=== PATIENT | male | born 1980 | race Caucasian/White ===

== ENCOUNTER 2020-09-15 11:03 | Outpatient (REF) | payer MEDICAID, SELFPAY | END 2020-09-15 11:04 | disposition home or self-care (01) | LOC: HO.LAB 11:03 | PROVIDERS: Visit Provider Internal Medicine | DX: Z20.828 Contact with and (suspected) exposure to other viral communicable diseases (principal) | CPT/HCPCS: C9803; U0003 ==

== ENCOUNTER 2020-11-16 08:11 | Outpatient (REF) | payer MEDICAID, SELFPAY | END 2020-11-16 08:12 | disposition home or self-care (01) | LOC: HO.LAB 08:11 | PROVIDERS: Visit Provider Internal Medicine | DX: Z20.822 Contact with and (suspected) exposure to COVID-19 (principal) | CPT/HCPCS: 36415; C9803; U0003 ==

== ENCOUNTER 2024-09-15 13:06 | Emergency (ER) | payer MEDICAID, SELFPAY ==
[2024-09-15 13:24] VITALS: BP 116/70; PULSE 70; RESP 18; TEMP 37; O2SAT 97; BMI 25.3
--- NOTE | 2024-09-15 13:28 | ED_ITS ---
HPI - General Adult General Chief complaint: Recheck/Abnormal Lab/Rx Stated complaint: high bp, headache Time Seen by Provider: 09/15/24 19:04 Source: patient Mode of arrival: ambulatory Limitations: language barrier (Maori-speaking mig tig welder utilized) History of Present Illness ED Provider: maldonado yancey NP HPI narrative: Patient is a 43-year-old male who presents emergency department for evaluation. He reports that he awoke today with a diffuse headache described as a pressure- like sensation. Did not take any OTC analgesics for this. While he was at [facility] he thought to check his blood pressure on an automated machine which read 135/79. He was concerned that this was elevated in addition to having his headache he decided to come to the emergency department. He denies associated dizziness, lightheadedness, vision changes, neck pain, neck stiffness, chest pain, shortness of breath, nausea, vomiting, numbness or tingling of the extremities. No recent head injuries. Related Data Allergies Allergy/AdvReac Type Severity Reaction Status Date / Time No Known Allergies Allergy Unverified 09/15/24 13:28 Review of Systems Review of Systems: Yes all other systems are reviewed and are negative ON LICENSE OF [facility] Past Medical History Attestation statement: The following information was validated with the patient. Source: old records reviewed Social History Social History Advance Directives: No Advance Directives Information Provided: No Do you have a plan to hurt others: No Plan Physical Exam ED Vital Signs: Vital Signs - 24 hr 09/15/24 13:24 09/15/24 18:52 09/15/24 20:19 Temperature 98.6 F 97.9 F 97.9 F Pulse Rate 70 68 68 Respiratory Rate 18 16 16 Blood Pressure 116/70 118/77 118/77 Pulse Oximetry 97 98 98 Oxygen Delivery Method Room Air Room Air Room Air BMI result Body Mass Index 25.3 Appearance: Alert.?Oriented to person, place and time. No acute distress.?Normal affect. Head: Normocephalic, atraumatic Eyes: Pupils equal, round and reactive to light. EOMI. No nystagmus. No tenderness to palpation over the temporal region. ENT: External auditory canal normal tympanic membrane pearly conteh and intact bilaterally. Oropharynx normal. Neck: Normal inspection.? Neck supple. CVS: Heart sounds normal. Normal heart rate and rhythm.? Pulses normal.?? Respiratory: No respiratory distress.? Lung sounds clear to auscultation bilaterally?? Abdomen: Soft and non-tender. Normoactive bowel sounds. ?? Skin: Skin warm and dry.? Normal skin color.? ?? Extremities: No lower extremity edema.? Neuro: Moves all extremities spontaneously. Sensation intact bilaterally. CN II- XII intact. No focal neuro deficits. Ambulatory with steady gait. Course Course Course Narrative: RME performed by Milly Fields PA-C. Patient is a 43 year old assigned male at presenting to the emergency department with a headache and concerns of high blood pressure. Detailed physical exam and review of systems are deferred to the ginner. Swabs ordered. Patient placed back in the waiting room pending room availability and results. Medications Administered Discontinued Medications Generic Name Dose Route Start Last Admin Trade Name Freq PRN Reason Stop Dose Admin Ibuprofen 600 mg 09/15/24 19:34 09/15/24 20:17 Ibuprofen 600 Mg Tablet PO 09/15/24 19:35 600 mg ONCE ONE Administration Medical Decision Making Medical Decision Making [facility] Narrative: Patient is a 43-year-old male presenting to emergency department for evaluation of a headache onset earlier today without taking any OTC analgesics, has been intermittent, described as a mild pressure currently in his diffuse 01/12. Differential diagnosis with presentation includes SDH, SAH, ICH, CLINICAL TRIAL COORDINATOR mass, meningitis, encephalitis, CVA, GCA, migraine, headache. History without concerning exposures, not exacerbated or worsened by exertion, no red flag symptoms, vision changes, under the age of 50, no new no compromising conditions, no focal neurological abnormalities, no nuchal rigidity, no recent trauma. Despite his concern for hypertension with the automated machine at [facility], he is normotensive here. Physical examination is benign, he has no focal neurological deficits. I suspect this is likely a tension type headache, for which we will trial management with ibuprofen.. Differential Diagnosis Differential Diagnoses: The differential diagnosis associated with the presentation includes (SDH, SAH, ICH, CLINICAL TRIAL COORDINATOR mass, meningitis, encephalitis, CVA, GCA, migraine, headache) Lab Data [facility] Lab Attestation statement: I reviewed the patient's lab results. (Viral serologies negative) Labs: Lab Results 09/15/24 Range/Units 13:56 Influenza Type A (PCR) NEGATIVE (Negative) Influenza Type B (PCR) NEGATIVE (Negative) RSV RNA Qual (PCR) NEGATIVE (Negative) SARS-CoV-2 RNA (RT-PCR) NEGATIVE (Negative) External Record Review External record reviewed: Outpatient record Tests considered The following testing was considered but not selected: See narrative above, CT head deferred. Prescription Management I considered prescription management with: Pain Medication Discharge Plan Discharge Clinical Impression: Headache Patient Disposition: Home, Self-Care Instructions: Acute Headache (ED) Additional Instructions: You can take ibuprofen 200 mg, 3 tablets (600mg) every 6-8 hours as needed for pain, in addition to Tylenol 500 mg, 2 tablets (1,000mg) every 4-6 hours as needed for pain, but not to exceed 3 doses daily (3,000mg).? Your blood pressure was normal today. You may follow-up with your primary care doctor as needed. Referrals: Physician,None [Primary Care Provider] - Interventions: ED Discharge Assessment Last Done: 09/15/24 20:19 Discharge Date/Time: 09/15/24 20:20 Print Language: Maori
[2024-09-15 14:41] LABS: Influenza A PCR NEGATIVE (Negative); Influenza B PCR NEGATIVE (Negative); Resp Syncy Virus RNA Qual PCR NEGATIVE (Negative); SARS COV2 PCR INHOUSE NEGATIVE (Negative)
[2024-09-15 18:52] VITALS: BP 118/77; PULSE 68; RESP 16; TEMP 36.6; O2SAT 98
--- NOTE | 2024-09-15 18:56 | PC.NURSE ---
patient a&ox3, vss, pt denying pain at this time, pt awaiting provider evaluation, call reagan within reach, will continue to monitor
[2024-09-15] MEDS: Ibuprofen 600 MG TABLET PO (20:17)
[2024-09-15 20:19] VITALS: BP 118/77; PULSE 68; RESP 16; TEMP 36.6; O2SAT 98
== END 2024-09-15 20:20 | disposition home or self-care (01) ==
PROVIDERS: Physician Assistant Medical; Emergency Provider Emergency Medicine
DX: R51.9 Headache, unspecified (principal); R79.89 Other specified abnormal findings of blood chemistry; R03.0 Elevated blood-pressure reading, without diagnosis of hypertension; Z03.818 Encounter for observation for suspected exposure to other biological agents ruled out
CPT/HCPCS: 0241U; 99283

== ENCOUNTER 2024-10-08 11:00 | Outpatient (REF) | payer MEDICAID, SELFPAY ==
[2024-10-08 13:16] LABS: Hematocrit 46.5 % (42.0-52.0); Hemoglobin 15.4 g/dl (14.0-18.0); Mean Corpuscular HGB Conc 33.1 g/dl (31.0-36.0); Mean Corpuscular Hemoglobin 32.1 pg (27.0-33.0); Mean Corpuscular Volume 96.9 fL (80.0-98.0); Mean Platelet Volume 10.2 fL (9.4-12.4); Platelet Count 297 X10*3/uL (160-400); Red Cell Distribution Width 11.8 % (11.0-16.0); White Blood Count 7.3 X10*3/uL (4.8-10.8)
[2024-10-08 13:30] LABS: Alanine Aminotransferase 27 U/L (0-40); Albumin Level 4.4 g/dL (3.5-5.0); Alkaline Phosphatase 87 U/L (39-117); Anion Gap 11 (12-20); Aspartate Amino Transferase 31 U/L (5-37); Bilirubin Total 0.9 mg/dL (0.0-1.0); Blood Urea Nitrogen 13 mg/dL (9-16); Calcium 9.9 mg/dL (8.4-10.2); Carbon Dioxide 31 mmol/L (22-29); Chloride 104 mmol/L (96-108); Cholesterol 232 mg/dL (<200); Estimated Glomerular Filt Rate > 60; Glucose Random 85 mg/dL (60-115); HDL Cholesterol 55 mg/dL (>40); LDL Cholesterol Calculated 159 mg/dL (<100); Potassium 3.9 mmol/L (3.3-5.1); Sodium 142 mmol/L (135-145); Total Protein 7.7 g/dL (6.5-8.0); Triglycerides 90 mg/dL (<150)
[2024-10-08 13:35] LABS: Estimated Average Glucose 85 mg/dL; Hemoglobin A1C 105.4749 umol/L; Hemoglobin A1c % 4.6 % (<6.0); Total Hemoglobin (HGBA1C) 3973.5094 umol/L
[2024-10-08 13:50] LABS: TSH reflex Free T4 1.33 uIU/mL (0.32-4.0)
[2024-10-08 14:59] LABS: CT PCR NOT DETECTED (Not Detect.); NG PCR NOT DETECTED (Not Detect.)
[2024-10-09 04:36] LABS: Syphilis Screen Nonreactive (Nonreactive)
[2024-10-09 04:51] LABS: HBS Num1 0.01 mIU/mL (0-7.99); HBc Num1 0.11 S/CO (0.00-0.79); HBsAGNum1 0.53 S/CO (0.00-0.99); HIV AB/AG Nonreactive (Nonreactive); HIV Num 1 0.05 S/CO (0.00-0.99); Hepatitis B Core Antibody Nonreactive (Nonreactive); Hepatitis B Surface Antigen Negative (Negative); ~HepC Num1 0.14 S/CO (0.00-0.79); ~Hepatitis B Surface Antibody NONREACTIVE (Nonreactive); ~Hepatitis C Antibody Nonreactive (Nonreactive)
== END 2024-10-08 11:01 | disposition home or self-care (01) ==
LOC: HO.HHCL 11:00
PROVIDERS: Visit Provider Student in an Organized Health Care Education/Training Program
DX: Z00.00 Encounter for general adult medical examination without abnormal findings (principal)
CPT/HCPCS: 80053; 80061; 83036; 84443; 85027; 86704; 86706; 86780; 86803; 87340; 87389; 87491; 87591

== ENCOUNTER 2024-11-27 01:36 | Emergency (ER) | payer MEDICAID, SELFPAY ==
[2024-11-27 01:47] VITALS: BP 130/80; PULSE 66; RESP 16; TEMP 36.4; O2SAT 99; BMI 25.7
[2024-11-27 02:24] VITALS: BP 119/65; PULSE 60; RESP 16; TEMP 37.7; O2SAT 99
--- NOTE | 2024-11-27 05:23 | ED_ITS ---
HPI - General Adult General Chief complaint: Headache Stated complaint: back neck pain Time Seen by Provider: 11/27/24 05:23 Related Data Allergies Allergy/AdvReac Type Severity Reaction Status Date / Time No Known Allergies Allergy Verified 11/27/24 01:48 [facility] Social History Social History Smoked in Last 30 Days: No Use of substances other than those prescribed or required for medical reasons: No Advance Directives: No Advance Directives Information Provided: Yes Do you have a plan to hurt others: No Plan Physical Exam ED Vital Signs: Vital Signs - 24 hr 11/27/24 01:47 11/27/24 02:24 Temperature 97.6 F 99.8 F Pulse Rate 66 60 Respiratory Rate 16 16 Blood Pressure 130/80 119/65 Pulse Oximetry 99 99 Oxygen Delivery Method Room Air Room Air BMI result Body Mass Index 25.7 Discharge Plan Discharge Print Language: [place] Islander
[2024-11-27 05:42] VITALS: BP 121/70; PULSE 61; RESP 16; TEMP 37.3; O2SAT 97
--- NOTE | 2024-11-27 05:51 | ED.GENADULT ---
HPI - General Adult General Chief complaint: Headache Stated complaint: back neck pain Time Seen by Provider: 11/27/24 05:23 History of Present Illness ED Provider: Balaji WILLINGHAM narrative: The patient is a 44-year-old male who has had some head pain in the back of his right head for a week or 2. He feels the discomfort behind his right ear. He does not normally get headaches of any kind. Yesterday the patient felt that he might have some weakness on the right side of his face. He was rinsing his mouth out with Listerine and he felt that Listerine was dribbling out of the right side of his mouth. Today he realized that his right eye was not blinking very much as well. For all these reasons he came to the emergency room for evaluation. He apparently was recently visiting in [place]. He returned to this area from [place] today. He has had no fever, sweats, chills. Related Data Previous Rx's ?Medication ?Instructions ?Recorded artificial tears(hypromellose) 0.5 2 drp ophthalmic-Right Q2H #15 mL 11/27/24 % eye drops prednisone 20 mg tablet 60 mg (3 x 20 mg) PO DAILY 6 days 11/27/24 #18 tabs valacyclovir 1 gram tablet 1,000 mg PO TID 7 days #21 tabs 11/27/24 Allergies Allergy/AdvReac Type Severity Reaction Status Date / Time No Known Allergies Allergy Verified 11/27/24 01:48 Review of Systems Review of Systems: Yes all other systems are reviewed and are negative PMFSH Social History Social History Smoked in Last 30 Days: No Use of substances other than those prescribed or required for medical reasons: No Advance Directives: No Advance Directives Information Provided: Yes Do you have a plan to hurt others: No Plan Physical Exam ED Vital Signs: Vital Signs - 24 hr 11/27/24 01:47 11/27/24 02:24 11/27/24 05:42 Temperature 97.6 F 99.8 F 99.1 F Pulse Rate 66 60 61 Respiratory Rate 16 16 16 Blood Pressure 130/80 119/65 121/70 Pulse Oximetry 99 99 97 Oxygen Delivery Method Room Air Room Air Room Air 11/27/24 06:06 Temperature 99.1 F Pulse Rate 61 Respiratory Rate 16 Blood Pressure 121/70 Pulse Oximetry 97 Oxygen Delivery Method Room Air BMI result Body Mass Index 25.7 Const Other: The patient has the appearance of a not nearly healthy looking 44-year-old. He was awake and alert, pleasant cooperative. He did not appear obviously acutely ill although he seemed to have some right-sided facial weakness. HENMT Other: There is a very subtle asymmetry to the face with subtle weakness of the right side of the face including the forehead. The patient could not puff out the cheeks because of air leakage on the right side. Eyes Other: Pupils are round equal, conjunctivae are clear, extraocular movements are intact. The patient had obvious decreased blinking function of the right eye. The right eye was able to fully close however. She Neck Other: no neck tenderness or swelling. Resp Effort & Inspection: normal respiratory effort Auscultation: clear to auscultation bilaterally Cardio Palpation: normal PMI Rate: regular rate Rhythm: regular rhythm and abnormal rhythm Skin Other: Skin is dry and unremarkable Neuro Other: the patient is awake and alert with normal mental status. He has a subtle weakness to the entire right side of the face including the forehead. He cannot puff out the cheeks because of air leakage on the right side. He has distinctly decreased blinking ability on the right eye. He is able to close the eye however. Speech is normal. Eye movements are normal. Strength and sensation in the extremities are normal. Aside from right facial weakness he has no other neurological deficits. Extrem Other: No peripheral edema the Medical Decision Making Medical Decision Making MDM Narrative: the patient is a 44-year-old otherwise healthy male who presents with a 2 day history of is mild but complete right-sided facial weakness that had been preceded by some headache behind the right ear for about a week or 2. 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 He does not feel that he has any significant exposure to ticks and therefore I think Lyme disease is an unlikely cause of Zazueta's palsy in this patient. The patient will be started on prednisone and valacyclovir. He was also given a prescription for artificial tears to help keep the right eye moist. At the moment I do not think he needs to tape his eye shut at night because the eye seems to close spontaneously. He was advised that if he feels there is any worsening to his eye closure he should tape his eye closed at night. He should follow up promptly with his PCP. Lab Data 11/27/24 05:56 11/27/24 05:56 Labs: Lab Results 11/27/24 Range/Units 05:56 WBC 6.0 (4.8-10.8) X10*3/uL RBC 4.34 L (4.60-5.80) X10*6/uL Hgb 14.4 (14.0-18.0) g/dl Hct 40.9 L (42.0-52.0) % MCV 94.2 (80.0-98.0) fL MCH 33.2 H (27.0-33.0) pg MCHC 35.2 (31.0-36.0) g/dl RDW 11.6 (11.0-16.0) % Plt Count 270 (160-400) X10*3/uL MPV 9.4 (9.4-12.4) fL Immature Gran % (Auto) 0.3 (0.0-0.4) % Neut % (Auto) 56.4 (45-73) % Lymph % (Auto) 32.8 (20-40) % [place] % (Auto) 8.9 (2-11) % Eos % (Auto) 1.3 (0-4) % Baso % (Auto) 0.3 (0-2) % Lymph # (Auto) 2.0 (1.2-4.9) X10*3/uL [place] # (Auto) 0.5 (0.1-1.2) X10*3/uL Eos # (Auto) 0.1 (0.0-0.4) X10*3/uL Baso # (Auto) 0.0 (0.0-0.2) X10*3/uL Abs Immat Gran (auto) 0.02 (0.00-0.03) X10*3/uL Absolute Neuts (auto) 3.4 (2.0-8.3) x10*3/uL Absolute Nucleated RBC 0.000 (0.0-0.012) X10*3/uL Nucleated RBC % (auto) 0.0 (0.0-0.2) /100WBC Sodium 141 (135-145) mmol/L Potassium 4.1 (3.3-5.1) mmol/L Chloride 108 (96-108) mmol/L Carbon Dioxide 26 (22-29) mmol/L Anion Gap 11 L (12-20) BUN 10 (9-16) mg/dL Creatinine 0.82 (0.5-1.4) mg/dL Estim Creat Clear Calc 114.9 Estimated GFR > 60 Random Glucose 96 (60-115) mg/dL Calcium 9.3 D (8.4-10.2) mg/dL C-Reactive Protein 0.61 H (< or = 0.50) mg/dL Discharge Plan Discharge Clinical Impression: Zazueta's palsy Patient Disposition: Home, Self-Care Instructions: Zazueta Palsy (ED) Additional Instructions: You have a condition called Zazueta's palsy that is causing weakness to the muscles on the right side of your face. You has been started on 2 medications to help this condition. One of these medications is prednisone. This medication is taken once a day. You have received your dose of prednisone for today, . Take your next dose of prednisone on Sunday morning. The other medication is valacyclovir, an antiviral medication. This medication is taken 3 times a day. You received another 2 doses today and then 3 times a day going forward. We have sent blood test to check to see if you might have Lyme disease. Lyme disease can sometimes cause Zazueta's palsy but I think it is unlikely in your case. We will call you if the test for Lyme disease is positive. I have also sent a prescription for eyedrops that you should use for your right eye. With Zazueta's palsy sometimes the eye does not fully close and the surface of the eye can get dry. Therefore apply eyedrops every couple of hours. If at night you feel that your right eye is not fully closing please tape it shut. Please contact the [facility] later today and call for a follow up appointment in the next few days. Explain that you were diagnosed with Zazueta's palsy in the emergency room. Return to the emergency room if you are significantly worse at any point. Prescriptions: New prednisone 20 mg tablet 60 mg PO DAILY 6 Days Qty: 18 0RF valacyclovir 1 gram tablet 1,000 mg PO TID 7 Days Qty: 21 0RF artificial tears(hypromellose) 0.5 % drops 2 drp ophthalmic-Right Q2H Qty: 15 0RF Referrals: [facility] [Provider Group] (Zazueta's palsy) Interventions: ED Discharge Assessment Last Done: 11/27/24 06:06 Discharge Date/Time: 11/27/24 06:09 Print Language: Bengali
[2024-11-27 06:01] LABS: Basophils Percent Auto 0.3 % (0-2); Eosinophils Absolute Auto 0.1 X10*3/uL (0.0-0.4); Eosinophils Percent Auto 1.3 % (0-4); Hematocrit 40.9 % (42.0-52.0); Hemoglobin 14.4 g/dl (14.0-18.0); Imm Gran Abs Auto 0.02 X10*3/uL (0.00-0.03); Imm Gran Pct Auto 0.3 % (0.0-0.4); Lymphocytes Percent Auto 32.8 % (20-40); MANUAL DIFF FLAG NO; Mean Corpuscular HGB Conc 35.2 g/dl (31.0-36.0); Mean Corpuscular Hemoglobin 33.2 pg (27.0-33.0); Mean Corpuscular Volume 94.2 fL (80.0-98.0); Mean Platelet Volume 9.4 fL (9.4-12.4); Monocytes Absolute Auto 0.5 X10*3/uL (0.1-1.2); Monocytes Percent Auto 8.9 % (2-11); Neutrophils Absolute Auto 3.4 x10*3/uL (2.0-8.3); Neutrophils Percent Auto 56.4 % (45-73); Platelet Count 270 X10*3/uL (160-400); Red Blood Count 4.34 X10*6/uL (4.60-5.80); Red Cell Distribution Width 11.6 % (11.0-16.0)
[2024-11-27 06:06] VITALS: BP 121/70; PULSE 61; RESP 16; TEMP 37.3; O2SAT 97
[2024-11-27 06:13] LABS: Anion Gap 11 (12-20); Blood Urea Nitrogen 10 mg/dL (9-16); C Reactive Protein 0.61 mg/dL (< or = 0.50); Calcium 9.3 mg/dL (8.4-10.2); Carbon Dioxide 26 mmol/L (22-29); Chloride 108 mmol/L (96-108); Creatinine Clr Calc Pharmacy 114.9; Estimated Glomerular Filt Rate > 60; Glucose Random 96 mg/dL (60-115); Potassium 4.1 mmol/L (3.3-5.1); Sodium 141 mmol/L (135-145)
[2024-11-28 11:13] LABS: Lyme Abs Screen <0.90 index
== END 2024-11-27 06:09 | disposition home or self-care (01) ==
PROVIDERS: Emergency Provider Emergency Medicine
DX: G51.0 Bell's palsy (principal); R51.9 Headache, unspecified
CPT/HCPCS: 36415; 80048; 85025; 86140; 86617; 86618; 99283; 99284

== ENCOUNTER 2025-05-26 08:03 | Outpatient (REF) | payer MEDICAID, SELFPAY ==
--- OUTSIDE RECORDS SUMMARY | 2025-05-26 08:06 | XMS_ITS | Clinical Summary ---
Author Organization [employer] Address [address] [facility] 7t [place] [address] Care Team Providers Care Account Manager Education Name Role Phone Cherie Arrington MD Primary Care Pro vider Allergies No known active allergies Medications * This document contains information received from the source organization and may not represent a complete record from that organization. Multiple Vitamin (multivitamin) capsule Take 1 capsule by mouth Once per day. 05/20/20 25 Discontinu ed(Other) ketoconazole (NIZOral) 2 % shampoo Apply topically 2 (two) times a week. Daily use for 1 week in affected area and then twice a week ,leave for 10 to 15 min and then rinse 120 mL 4 05/20/20 25 Discontinu ed(Other) emtricitabine-t enofovir DF (Truvada) 200-300 MG tablet One tablet by mouth daily 90 tablet 4 05/20/20 25 Discontinu ed(Other) doxycycline (Vibra-Tabs) 100 MG tablet Take with a full glass of water and do not lie down for at least 30 minutes after. 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 Obesity 05/23/2025 Persistent depressive disord er with anxious distress, currently moderate 10/08/2024 Assessment & Plan (10/08/2024 1:33 PM EST): During [facility] Consult Gamal presenting with depressed mood, Tearful, hopelessness, irritable mood, loss of interests/pleasure , sense of isolation/loneliness , isolating, psychomotor agitation, worthlessness, inappropriate/excessive guilt , difficulty concentrating, indecisiveness and excessive worry/anxiety, difficulty controlling worry, anxiety/worry associated to restlessness and/or feeling keyed-up/On edge , easily fatigued , difficulty concentrating and/or mind going blank , irritability, and sleep disturbance difficulty falling asleep, and Fear ; for a period of 18+ mo, for most or all symptoms in the context of divorce/separation and family issues. Gamal reported struggling with symptoms for about two years. Recently, a romantic break-up triggered his underneath emotions. He is the youngest of ten siblings. Pt had a complex family hx when growing up which forced him to mature at a young age. His sense of resilience is identified as strength. clinician engaged patient with active/reflective listening. Reviewed and assessed for risk, current stressors and protective factors using open-ended questions. Explored strategies to use when sxs increase. Practiced breathing exercises during session. Pt recognized his strengths and ability to overcome difficulties. He is willing to try his own coping mechanisms to manage sxs. Declined OP referral for now. clinician provided information in case he changes his mind. Not interested in starting medication. Health care maintenance 10/08/2024 High risk sexual behavior 10/08/2024 Hyperlipidemia 01/12/2021 Herpes simplex 07/01/2012 Resolved Problems Problem Noted Date Diagnosed Date Resolved Date Pityriasis versicolor 10/08/20242024 Encounters Date Type Department Care Team Description 05/20/2025 3:00 PM EDT Office Visit [facility] MEDICINE [address] [place] [phone] Cherie Arrington MD Health care maintenance (Primary Dx); Hyperlipidemia, unspecified hyperlipidemia type; Dietary counseling; Exercise counseling; High risk heterosexual behavior; Zazueta's palsy; Obesity, unspecified class, unspecified obesity type, unspecified whether serious comorbidity present 05/20/2025 Travel 05/19/2025 Telephone [facility] MEDICINE [address] [place] [address] Cherie Arrington MD CHART PREP 04/03/2025 Telephone [facility] MEDICINE [address] [place] [address] Chip Mitchell MA Chart Prep 03/27/2025 Patient Outreach [facility]C MED & PEDS [address] [place] [address] Cherie Arrington MD Pre-visit Planning (Negative, Tobacco screening negative. ) from Last 3 Months Immunizations Immunization Administration Dates Next Due Hep A, Adult 06/08/2021,07/01/2012 Hep B, adult 04/18/2022, 9,11/28/2018,2017,07/01/2012 Influenza injectable quadriv alent IIV4 with preservative 08/12/2015 Influenza, Split (incl. clover fied surface antigen) 07/01/2012 Moderna Covid-19 Vaccine 12+ 03/16/2021,02/17/20 21 Tdap 06/08/2021 Family History Medical History Relation Name Comments Heart attack Father DM2 Mother breast ca- 50s Mother Relation Name Status Comments Father Mother Social History Tobacco Use Types Packs/Day Years Used Date Smoking Tobacco: Never Passive Smoke Exposure: Never Smokeless Tobacco: Never Tobacco Cessation:Counseling Given: Not Answered Alcohol Use Standard Drinks/Week Comments Yes 0 (1 standard drink = 0.6 oz pur e alcohol) social Depression Answer Date Recorded Patient Health Questionnaire-9 Score 7 10/08/2024 Patient Health Questionnaire-9 Score 7 10/08/2024 Last PHQ-9: Questionnaire Data Not on file 1 12/09/2023 Housing Stability Answer Date Recorded What is your housing situation today? I have ranjanbella holt 10/08/[address] you li ve. Do you have problems with any of the following? None of the above 10/08/2024 Food Insecurity Answer Date Recorded Within the past 12 months, y ou worried that your food would run out before you got money to buy more: Never True 03/27/2025 Within the past 12 months,th e food you bought just didn't last and you didn't have enough money to get more: Never True Transportation Answer Date Recorded In the past 12 months, has l ack of transportation kept you from medical appts, meetings, work or from getting things needed for daily living? No 03/27/2025 Utilities Answer Date Recorded In the past 12 months, has t he electric, gas, oil or water company threatened to shut off services in your home? No 10/08/2024 Depression Answer Date Recorded Patient Health Questionnaire-2 Score 2 10/08/2024 Internet Access Answer Date Recorded Internet Access Q1 Yes 10/08/2024 Internet Access Q2 Not on file 10/08/2024 Sex and Gender Information Value Date Recorded Sex Assigned at Male 09/04/2022 10:16 AM EDT Legal Sex Male 10:16 AM EDT Gender Identity Male 09/04/2022 10:16 AM EDT Sexual Orientation Straight 09/04/2022 10 :16 AM EDT Last Filed Vital Signs Vital Sign Reading Time Taken Comments Blood Pressure 120/80 05/20/2025 3:06 PM EDT Pulse 64 05/20/2025 3:06 PM EDT Temperature 36.3 C (97.3 F) 05/20/2025 3:06 PM EDT Respiratory Rate 20 05/20/2025 3:06 PM EDT Oxygen Saturation 99% 05/20/2025 3:06 PM EDT Inhaled Oxygen Concentration - - Weight 78.5 kg (173 lb) 05/20/2025 3:06 PM EDT Height 160 cm (5' 3 ) 05/20/2025 3:06 PM EDT Body Mass Index 30.65 05/20/2025 3:06 PM EDT Plan of Treatment Health Maintenance Due Date Last Done Comments Family Planning (PISQ) 1995 HPV Vaccines (1 - Male 3-dose series) 1995 COVID-19 Vaccine ( season) 2024 03/16/2021, 02/16/2021 Influenza Vaccine (#1) 2025 08/12/2015, 2011 Alcohol/Substance Use Screening 10/08/2025 10/08/2024 Depression Screening 10/08/2025 10/08/2024, 10/08/20 24 SDOH Screening 03/27/2026 03/27/2025 Disability Screening 05/20/2026 05/20/2025 Tobacco Screening 05/20/2026 05/20/2025 Lipid Panel 10/08/2029 10/08/2024, 06/0 11/2021, 12/08/2020 Zoster Vaccines (1 of 2) 2030 DTaP/Tdap/Td Vaccines (2 - Td or Tdap) 06/08/2031 06/08/2021 RSV Patients and Patients Aged 60 years or older (1 - 1-dose 75+ series) 2055 Hepatitis A Vaccines Aged Out 06/08/2021, 07/01/20 12 No longer eligible based on patient's age to complete this topic Hepatitis B Vaccines Completed 04/18/2022, 01/23/2019, 11/28/2018, Additional history exists HIV Screening Completed 10/08/2024, 09/06, 04/05/2022, Additional history exists Hepatitis C Screening Completed 10/08/2024 , 04/05/2022, 03/28/2021, Additional history exists HIB Vaccines Aged Out No longer eligi ble based on patient's age to complete this topic IPV Vaccines Aged Out No longer eligi ble based on patient's age to complete this topic Meningococcal B Vaccine Aged Out No l onger eligible based on patient's age to complete this topic Meningococcal Vaccine Aged Out No anshul sam eligible based on patient's age to complete this topic Pneumococcal Vaccine: Pediatrics (0 to 5 Years) and At-Risk Patients (6 to 49) Years Aged Out No longer eligible based on patient's age to complete this topic RSV under 20 months Aged Out No longe r eligible based on patient's age to complete this topic Rotavirus Vaccines Aged Out No longer eligible based on patient's age to complete this topic Procedures Procedure Name Priority Date/Time Associated Diagnosis Comments HEPATITIS C AB W/REFL TO HCV RNA, QN, PCR Routine 10/08/2024 11:05 AM EST Annual physical exam HIV 1/2 ANTIGEN/ANTIBODY, FOURTH GENERATION W/RFL Routine 10/08/2024 11:05 AM EST Annual physical exam LIPID PANEL, STANDARD Routine 10/08/2024 11:05 AM EST Annual physical exam from Last 3 Months or Most Recently Relevant to Health Maintenance Results * Hepatitis C Antibody with Reflex to HCV, RNA, Quantitative, Real-Time PCR (10/08/2024 11:05 AM EST) [facility] Hepatitis C Antibody Nonreactive Nonreactive [facility] Comment:Antibodies to HCV no t detected; does not exclude early acuteHCV infection. Blood Venous blood specimen / Unknown 10/08/2024 11:05 AM EST 10/08/2024 12:56 PM EST Cherie Comer MD LAB BLOOD ORDERAB LES Final Result Performing Organization Address City/[facility]/ZIP Co de Phone Number [facility] [address] [place] [phone] * HIV-1/2 Antigen and Antibodies, Fourth Generation, with Reflexes (10/08/2024 11:05 AM EST) [facility] HIV AB/AG Nonreactive Nonreactive [facility] Comment:HIV-1 p24 Ag and/or HIV-1/HIV-2 Ab not detected.A test result that is nonreactive does not exclude thepossibility of exposure to or infection with HIV-1 and/orHIV-2. Nonreactive results in this assay for individualswith prior exposure to HIV-1 and/or HIV-2 may be due toantigen and antibody levels that are below the limit ofdetection of this assay.The [employer] HIV Ag/Ab Combo assay result andsupplemental assay results should be interpreted inconjunction with the patient's clinical presentation,history and other laboratory results. If the results areinconsistent with clinical evidence, additional testing issuggested to confirm the result. Blood Venous blood specimen / Unknown 10/08/2024 11:05 AM EST 10/08/2024 12:56 PM EST us Cherie Comer MD LAB BLOOD ORDERAB LES Final Result Performing Organization Address City/[facility]/ZIP Co de Phone Number [facility] [address] [place] [phone] * (ABNORMAL) Lipid Panel, Standard (10/08/2024 11:05 AM EST) [facility] Triglycerides 90 <150 mg/dL [facility] Comment:Desirable Triglyceri de: less than 150 mg/dLBorderline High Triglyceride 150-199 mg/dLHigh Triglyceride: 200-499 mg/dLVery High Triglyceride: greater than or equal to 5OO mg/dL Cholesterol 232(H) <200 mg/dL [facility] Comment:Desirable Cholestero l: less than 200 mg/dLBorderline High Cholesterol: 200-239 mg/dLHigh Cholesterol: greater than 239 mg/dL LDL Cholesterol Calculated 159(H) <100 mg/dL [facility] Comment:Desirable LDL: less than 100 mg/dLNear Optimal/Above Optimal LDL: 110- 129 mg/dLBorderline High LDL: 130-159 mg/dLHigh LDL: 160-189 mg/dLVery High LDL: greater than or equal to 190 mg/dL HDL Cholesterol 55 >40 mg/dL [facility] Comment:Desirable HDL: great er than 40 mg/dL Note: This HDL assay may give artificially low results in patients with liver disease. Blood Venous blood specimen / Unknown 10/08/2024 11:05 AM EST 10/08/2024 12:56 PM EST Cherie Comer MD LAB BLOOD ORDERAB LES Final Result [facility] [address] [place] [phone] from Last 3 Months or Most Recently Relevant to Health Maintenance Insurance [facility] STANDARD Care Teams Account Manager Education Relationship Specialty Start Date End Date Cherie Arrington MD [address] [place] [address] PCP - General Internal Medicine 04/01/24
[2025-05-26 11:51] LABS: Alanine Aminotransferase 61 U/L (0-40); Albumin Level 4.4 g/dL (3.5-5.0); Alkaline Phosphatase 94 U/L (39-117); Anion Gap 16 (12-20); Aspartate Amino Transferase 79 U/L (5-37); Blood Urea Nitrogen 11 mg/dL (9-16); Calcium 9.6 mg/dL (8.4-10.2); Carbon Dioxide 25 mmol/L (22-29); Chloride 105 mmol/L (96-108); Cholesterol 262 mg/dL (<200); Estimated Glomerular Filt Rate > 60; HDL Cholesterol 66 mg/dL (>40); Potassium 4.1 mmol/L (3.3-5.1); Sodium 142 mmol/L (135-145); Total Protein 7.2 g/dL (6.5-8.0); Triglycerides 69 mg/dL (<150)
[2025-05-26 12:09] LABS: HBS Num1 0.34 mIU/mL (0-7.99); HBc Num1 0.07 S/CO (0.00-0.79); HBsAGNum1 0.35 S/CO (0.00-0.99); HIV Num 1 0.06 S/CO (0.00-0.99); Hepatitis B Surface Antigen Negative (Negative); Syphilis Screen Nonreactive (Nonreactive); ~HepC Num1 0.13 S/CO (0.00-0.79); ~Hepatitis B Surface Antibody NONREACTIVE (Nonreactive); ~Hepatitis C Antibody Nonreactive (Nonreactive)
== END 2025-05-26 08:04 | disposition home or self-care (01) ==
LOC: HO.HHCL 08:03
PROVIDERS: PCP Student in an Organized Health Care Education/Training Program; Visit Provider Student in an Organized Health Care Education/Training Program
DX: Z00.00 Encounter for general adult medical examination without abnormal findings (principal); Z11.3 Encounter for screening for infections with a predominantly sexual mode of transmission; Z11.4 Encounter for screening for human immunodeficiency virus [HIV]; Z11.59 Encounter for screening for other viral diseases; E78.5 Hyperlipidemia, unspecified
CPT/HCPCS: 36415; 80053; 80061; 86704; 86706; 86780; 86803; 87340; 87389

== ENCOUNTER 2025-05-27 13:16 | Outpatient (REF) | payer MEDICAID, SELFPAY ==
--- OUTSIDE RECORDS SUMMARY | 2025-05-27 13:41 | XMS_ITS | Clinical Summary ---
Author Organization [employer] Address [address] [facility] [address] [place] [address] Care Team Providers Care Hogshead Filler Name Role Phone Cherie Arrington MD Primary Care Pro vider Allergies No known active allergies Medications * This document contains information received from the source organization and may not represent a complete record from that organization. fish oil-omega-3 fatty acids 1000 MG capsuleIndications :Hyperlipidemia, unspecified hyperlipidemia type Take 2 capsules (2 g) by mouth Once per day. 270 capsule 3 05/27/20 25 026 Active Multiple Vitamin (multivitamin) capsule Take 1 capsule by mouth Once per day. 025 Discontin ued(Other ) ketoconazole (NIZOral) 2 % shampoo Apply topically 2 (two) times a week. Daily use for 1 week in affected area and then twice a week ,leave for 10 to 15 min and then rinse 120 mL 10/09/20 24 025 Discontin ued(Other ) emtricitabine-teno fovir DF (Truvada) 200-300 MG tablet One tablet by mouth daily 90 tablet 10/09/20 24 025 Discontin ued(Other ) doxycycline (Vibra-Tabs) 100 MG tablet Take with a full glass of water and do not lie down for at least 30 minutes after. Take 2 tablets together as directed within 72 hours of risk sexual exposure 20 tablet 10/09/20 24 025 Discontin ued(Other ) Active Problems Problem Noted Date Diagnosed Date [...] Encounters Date Type Department Care Team Description 05/27/2025 Orders Only [facility] WALK-IN CENTER [address] [place] [address] Cherie Arrington MD Hyperlipidemia, unspecified hyperlipidemia type (Primary Dx); Obesity, unspecified class, unspecified obesity type, unspecified whether serious comorbidity present 05/26/2025 Orders Only [facility] MEDICINE [address] [place] [address] Cherie Arrington MD Hyperlipidemia, unspecified hyperlipidemia type (Primary Dx) 05/26/2025 Results Follow-Up [facility] MEDICINE [address] [place] [phone] Cherie Arrington MD Comprehensive Metabolic Panel, Hepatitis B surface antigen, EIA, Hepatitis B Surface Antibody, Qualitative, Additional followed-up results: 5 05/20/2025 3:00 PM EDT Office Visit [address] [address] Cherie Arrington MD Health care maintenance (Primary Dx); Hyperlipidemia, unspecified hyperlipidemia type; Dietary counseling; Exercise counseling; High risk heterosexual behavior; Zazueta's palsy; Obesity, unspecified class, unspecified obesity type, unspecified whether serious comorbidity present 05/20/2025 Travel 05/19/[address] [address] Cherie Arrington MD CHART PREP 04/03/[address] [address] Chip Mitchell MA Chart Prep 03/27/2025 Patient Outreach [facility] CHC MED & PEDS [address] [place] [address] Cherie Arrington MD Pre-visit Planning (Negative, Tobacco [...] is your housing situation today? I have ranjan holt 10/08/[address] you [...] - Male 3-dose series) 1995 COVID-19 Vaccine (3 - season) 2024 03/16/2021, 02/16/2021 Influenza Vaccine (#1) 2025 08/12/2015, 2011 Alcohol/Substance Use Screening 10/08/2025 10/08/2024 Depression Screening 10/08/2025 10/08/2024, 10/08/20 24 SDOH Screening 03/27/2026 03/27/2025 Disability Screening 05/20/2026 05/20/2025 Tobacco Screening 05/20/2026 05/20/2025 Lipid Panel 05/26/2030 05/26/2025, 02/2024, 04/05/2022, Additional history exists Zoster Vaccines (1 of 2) 2030 DTaP/Tdap/Td Vaccines (2 - Td or Tdap) 06/08/2031 06/08/2021 RSV Patients and Patients Aged 60 years or older (1 - 1-dose 75+ series) 2055 Hepatitis A Vaccines Aged Out 06/08/2021, 07/01/20 12 No longer eligible based on patient's age to complete this topic Hepatitis B Vaccines Completed 04/18/2022, 01/23/2019, 11/28/2018, Additional history exists HIV Screening Completed 05/26/2025, 120 02/2024, 10/02/2022, Additional history exists Hepatitis C Screening Completed 05/26/2025 , 10/08/2024, 04/05/2022, Additional history exists HIB Vaccines Aged Out [...] Procedure Name Priority Date/Time Associated Diagnosis Comments LIPID PANEL, STANDARD Routine 05/26/2025 8:08 AM EDT Hyperlipidemia, unspecified hyperlipidemia type SYPHILIS SCREEN Routine 05/26/2025 8:08 AM EDT Health care maintenance HIV 1/2 ANTIGEN/ANTIBODY, FOURTH GENERATION W/RFL Routine 05/26/2025 8:08 AM EDT Health care maintenance HEPATITIS C AB W/REFL TO HCV RNA, QN, PCR Routine 05/26/2025 8:08 AM EDT Health care maintenance HEPATITIS B CORE AB TOTAL Routine 05/26/2025 8:08 AM EDT Health care maintenance HEPATITIS B SURFACE ANTIBODY, QUALITATIVE Routine 05/26/2025 8:08 AM EDT Health care maintenance HEPATITIS B SURFACE ANTIGEN, EIA Routine 05/26/2025 8:08 AM EDT Health care maintenance COMPREHENSIVE METABOLIC PANEL Routine 05/26/2025 8:08 AM EDT Health care maintenance from Last 3 Months Results * Syphilis Screen (05/26/2025 8:08 AM EDT) Syphilis Screen Nonreactive Nonreactive [facility] Blood 05/26/2025 8:08 AM EDT 05/26/2025 11:10 AM EDT us Cherie Comer MD LAB BLOOD ORDERAB LES Final Result [facility] [address] [place] [phone] * Hepatitis C Antibody with Reflex to HCV, RNA, Quantitative, Real-Time PCR (05/26/2025 8:08 AM EDT) Hepatitis C Antibody Nonreactive Nonreactive [facility] Comment:Antibodies to HCV no t detected; does not exclude early acuteHCV infection. Blood Venous blood specimen / Unknown 05/26/2025 8:08 AM EDT 05/26/2025 11:10 AM EDT us Cherie Comer MD LAB BLOOD ORDERAB LES Final Result Performing Organization Address City/[facility]/ZIP Co de Phone Number [facility] [address] [place] [phone] * Hepatitis B surface antigen, EIA (05/26/2025 8:08 AM EDT) Hepatitis B Surface Ag Negative Negative [facility] Blood Venous blood specimen / Unknown 05/26/2025 8:08 AM EDT 05/26/2025 11:10 AM EDT us Cherie Comer MD LAB BLOOD ORDERAB LES Final Result Performing Organization Address City/[facility]/ZIP Co de Phone Number [facility] [address] [place] [phone] * Hepatitis B Core Antibody, Total (05/26/2025 8:08 AM EDT) Hepatitis B Core Antibody Nonreactive Nonreactive [facility] Blood Venous blood specimen / Unknown 05/26/2025 8:08 AM EDT 05/26/2025 11:10 AM EDT us Cherie Comer MD LAB BLOOD ORDERAB LES Final Result Performing Organization Address City/[facility]/ZIP Co de Phone Number [facility] [address] [place] [phone] * HIV-1/2 Antigen and Antibodies, Fourth Generation, with Reflexes (05/26/2025 8:08 AM EDT) Pathologist [facility] HIV AB/AG Nonreactive Nonreactive [facility] Comment:HIV-1 p24 Ag and/or HIV-1/HIV-2 Ab not detected.A test result that is nonreactive does not exclude thepossibility of exposure to or infection with HIV-1 and/orHIV-2. Nonreactive results in this assay for individualswith prior exposure to HIV-1 and/or HIV-2 may be due toantigen and antibody levels that are below the limit ofdetection of this assay.The [employer] HIV Ag/Ab Combo assay result andsupplemental assay results should be interpreted inconjunction with the patient's clinical presentation,history and other laboratory results. If the results areinconsistent with clinical evidence, additional testing issuggested to confirm the result. Blood Venous blood specimen / Unknown 05/26/2025 8:08 AM EDT 05/26/2025 11:10 AM EDT us Cherie Comer MD LAB BLOOD ORDERAB LES Final Result Performing Organization Address City/[facility]/ZIP Co de Phone Number [facility] [address] [place] [phone] * Hepatitis B Surface Antibody, Qualitative (05/26/2025 8:08 AM EDT) Pathologist [facility] ~Hepatitis B Surface Antibody NONREACTIVE Nonreactive [facility] Comment:Nonreactive: < 8.00 mIU/mL Blood Venous blood specimen / Unknown 05/26/2025 8:08 AM EDT 05/26/2025 11:10 AM EDT us Cherie Comer MD LAB BLOOD ORDERAB LES Final Result Performing Organization Address City/[facility]/ZIP Co de Phone Number [facility] [address] [place] [phone] * (ABNORMAL) Lipid Panel, Standard (05/26/2025 8:08 AM EDT) Triglycerides 69 <150 mg/dL [facility] Comment:Desirable Triglyceri de: less than 150 mg/dLBorderline High Triglyceride 150-199 mg/dLHigh Triglyceride: 200-499 mg/dLVery High Triglyceride: greater than or equal to 5OO mg/dL Cholesterol 262(H) <200 mg/dL [facility] Comment:Desirable Cholestero l: less than 200 mg/dLBorderline High Cholesterol: 200-239 mg/dLHigh Cholesterol: greater than 239 mg/dL LDL Cholesterol Calculated 183(H) <100 mg/dL [facility] Comment:Desirable LDL: less than 100 mg/dLNear Optimal/Above Optimal LDL: 110- 129 mg/dLBorderline High LDL: 130-159 mg/dLHigh LDL: 160-189 mg/dLVery High LDL: greater than or equal to 190 mg/dL HDL Cholesterol 66 >40 mg/dL [facility] Comment:Desirable HDL: great er than 40 mg/dL Note: This HDL assay may give artificially low results in patients with liver disease. Blood Venous blood specimen / Unknown 05/26/2025 8:08 AM EDT 05/26/2025 11:13 AM EDT us Cherie Comer MD LAB BLOOD ORDERAB LES Final Result [facility] [address] [place] [phone] * (ABNORMAL) Comprehensive Metabolic Panel (05/26/2025 8:08 AM EDT) Sodium 142 135 - 145 mmol/L [facility] Potassium 4.1 3.3 - 5.1 mmol/L [facility] Chloride 105 96 - 108 mmol/L [facility] Carbon Dioxide 25 22 - 29 mmol/L [facility] Anion Gap 16 12 - 20 [facility] Urea Nitrogen (BUN) 11 9 - 16 mg/dL [facility] Creatinine, Serum 1.08 0.5 - 1.4 mg/dL [facility] Estimated Glomerular Filt Rate >60 [facility] Comment:Chronic Kidney Disea se: Estimated GFR < 60 mL/min/[id number] Kidney Disease: Estimated GFR < 15 mL/min/1.73m2 Glucose 83 60 - 115 mg/dL [facility] Calcium 9.6 8.4 - 10.2 mg/dL [facility] Bilirubin, Total 0.7 0.0 - 1.0 mg/dL [facility] Aspartate Amino Transferase 79(H) 5 - 37 U/L [facility] Alanine Aminotransferase 61(H) 0 - 40 U/L [facility] Total Protein 7.2 6.5 - 8.0 g/dL [facility] Albumin Level 4.4 3.5 - 5.0 g/dL [facility] Alkaline Phosphatase 94 39 - 117 U/L [facility] Blood Venous blood specimen / Unknown 05/26/2025 8:08 AM EDT 05/26/2025 11:13 AM EDT us Cherie Comer MD LAB BLOOD ORDERAB LES Final Result Performing Organization Address City/State/[facility] Co de Phone Number [facility] [address] [place] [phone] from Last [address] [place] [address] [place] [address] STANDARD Care Teams Hogshead Filler Relationship Specialty Start Date End Date Cherie Arrington MD [address] [place] [phone] PCP - General Internal Medicine 04/01/24
[2025-05-27 22:23] LABS: CT PCR Urine NOT DETECTED (Not Detect.); NG PCR Urine NOT DETECTED (Not Detect.)
== END 2025-05-27 13:17 | disposition home or self-care (01) ==
LOC: HO.HHCL 13:16
PROVIDERS: PCP Student in an Organized Health Care Education/Training Program; Visit Provider Student in an Organized Health Care Education/Training Program
DX: Z00.00 Encounter for general adult medical examination without abnormal findings (principal); Z11.3 Encounter for screening for infections with a predominantly sexual mode of transmission
CPT/HCPCS: 36415; 87491; 87591

== ENCOUNTER 2025-08-31 08:42 | Outpatient (REF) | payer MEDICAID, SELFPAY ==
--- OUTSIDE RECORDS SUMMARY | 2025-08-27 10:15 | XMS_ITS | Encounter Summary ---
Author Organization [employer] Address [address] [facility] [address] [place] [address] Care Team Providers Care Course Instructor Name Role Phone Cherie Arrington MD Primary Care Pro vider Encounter Details Date Type Department Care Team (Late st Contact Info) Description 08/27/2025 10:15 AM EDT Office Visit [facility] [address] [place] [address] Cherie Arrington MD [address] [place] [address] Health care maintenance (Primary Dx); Transaminitis Social History Tobacco Use Types Packs/Day Years [...] Orientation Straight 09/04/2022 10 :16 AM EDT documented as of this encounter Last Filed Vital Signs Vital Sign Reading Time Taken Comments Blood Pressure 108/78 08/27/2025 10:07 AM EDT Pulse 72 08/27/2025 10:07 AM EDT Temperature 36.4 C (97.5 F) 08/27/2025 10:07 AM EDT Respiratory Rate 20 08/27/2025 10:0 7 AM EDT Oxygen Saturation 98% 08/27/2025 10: 07 AM EDT Inhaled Oxygen Concentration - - Weight 80.2 kg (176 lb 12.8 oz) 025 10:07 AM EDT Height 160 cm (5' 3 ) 08/27/2025 10:07 AM EDT Body Mass Index 31.32 08/27/2025 10:07 AM EDT documented in this encounter Progress Notes * Cherie Comer MD - 08/27/2025 10:15 AM EDT Subjective Patient ID: Gamal Hdez is a 44 y.o. 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 COVID 19 and Flu vaccine offeredtoday but refused --- -Reports decrease vision -referred to vision center today -ordered annual labs exam today to be done in 10/2025 at next apt will do questionnaire --will infor lab results HLD Transaminitis -05/2025 AST 79,ALT 61, total ch 262, LDL 183 -worsening from previous labs likely elevated LFTs from elevated lipids ,denies excess ETOH, tylenol nor NSAIDS -ASCVD is 1.8 % ( no indication for statins) -life style changes advised -not taking Evart 3 consistently ,maybe taking twice a day -will repeat fasting lipids , LDL close to 190 will need to consider statins if no improving Obesity BMI 31 -in part from muscle mass -Advised pt to improve diet and exercise,discussed healthy life style -discussed interlocking machine operator referral at next apt -refuse Depression/anxiety -PHQ9 7 ,PAULETTE 5, no SI, no hallucinations , no dalton Reports feeling depressed for the past year or two triggered by divorce w Used to f w therapist close to a year ago -saw at last apt -- Declined OP tx --agreed today for telephone apt w for outpatient scheduled for 09/02/2024 4 pm Carolyne P --for virtual psychtx -agreed today to start w escitalopram start 5 mg for 1 week if ok to increase to 10 mg until next apt w me High risk sexual behavior Reports Mx female sexual partners- not currently ,no consistent condom use--refuse risk no current w mx partners 10/2024 STI test neg -not started HIV PREP nor DOXY PEP not interested any more--currently one partner on and off -requesting today for STI test -will inform results Review of Systems -Anxiety Objective BP 108/78 (BP Location: Left arm, Patient Position: Sitting, BP Cuff Size: Adult) Pulse 72 Temp97.5 ??F (36.4 ??C) (Temporal) Resp 20 Ht 5' 3 (1.6 m) Wt 176 lb 12.8 oz (80.2 kg) SpO2 98% BMI 31.32 kg/m?? Physical Exam Constitutional: General: He is not in acute distress. Appearance: Normal appearance. He is not ill-appearing. Neurological: Mental Status: He is alert. Psychiatric: Comments: Appears anxious ,tense Assessment/Plan Problem List Items Addressed This Visit Health care maintenance - Primary Relevant Orders Hepatitis B Core Antibody, Total Hepatitis B Surface Antibody, Qualitative Hepatitis B surface antigen, EIA Comprehensive Metabolic Panel Lipid Panel, Standard CBC auto differential Chlamydia/Trichomonas/Neisseria gonorrhoeae, PCR, Urine Hemoglobin A1c Hepatitis C Antibody with Reflex to HCV, RNA, Quantitative, Real-Time PCR HIV-1/2 Antigen and Antibodies, Fourth Generation, with Reflexes Syphilis Screen TSH with Reflex to Free T4 Transaminitis documented in this encounter Plan of Treatment Upcoming Encounters Date Type Department Care Team (Late st Contact Info) Description 11/10/2025 9:45 AM EST Office Visit [facility] [address] [place] [address] [phone] Cherie Arrington MD [address] [place] [address] [phone] Scheduled Orders Name Type Priority Associated Diagnoses Orde r Schedule Hepatitis B Core Antibody, Total Lab Routine Health care maintenance Expected: 08/27/2025 (Approximate), Expires: 08/27/2026 Hepatitis B Surface Antibody, Qualitative Lab Routine Health care maintenance Expected: 08/27/2025 (Approximate), Expires: 08/27/2026 Hepatitis B surface antigen, EIA Lab Routine Health care maintenance Expected: 08/27/2025 (Approximate), Expires: 08/27/2026 Comprehensive Metabolic Panel Lab Routine Health care maintenance Expected: 08/27/2025 (Approximate), Expires: 08/27/2026 Lipid Panel, Standard Lab Routine Health care maintenance Expected: 08/27/2025 (Approximate), Expires: 08/27/2026 CBC auto differential Lab Routine Health care maintenance Expected: 08/27/2025 (Approximate), Expires: 08/27/2026 Chlamydia/Trichomonas/Neis seria gonorrhoeae, PCR, Urine Lab Routine Health care maintenance Ordered: 08/27/2025 Hemoglobin A1c Lab Routine Health care maintenance Expected: 08/27/2025 (Approximate), Expires: 08/27/2026 Hepatitis C Antibody with Reflex to HCV, RNA, Quantitative, Real-Time PCR Lab Routine Health care maintenance Expected: 08/27/2025 (Approximate), Expires: 08/27/2026 HIV-1/2 Antigen and Antibodies, Fourth Generation, with Reflexes Lab Routine Health care maintenance Expected: 08/27/2025 (Approximate), Expires: 08/27/2026 Syphilis Screen Lab Routine Health care maintenance Expected: 08/27/2025 (Approximate), Expires: 08/27/2026 TSH with Reflex to Free T4 Lab Routine Health care maintenance Expected: 08/27/2025 (Approximate), Expires: 08/27/2026 documented as of this encounter Visit Diagnoses Diagnosis Health care maintenance- Primary Transaminitis Nonspecific elevation of levels of transaminase or lactic acid dehydrogenase (LDH) documented in this encounter Additional Health Concerns Assessment Noted Time PHQ-9 Depression Total Score: 7 10/08/20 24 11:34 AM EST documented as of this encounter Care Teams Course Instructor Relationship Specialty Start Date End Date Cherie Arrington MD [address] [place] [phone] PCP - General Internal Medicine 04/01/24 documented as of this encounter
--- OUTSIDE RECORDS SUMMARY | 2025-08-31 09:12 | XMS_ITS | Clinical Summary ---
Author Organization [employer] Address [address] [facility] [address] [place] [address] Care Team Providers Care Bottom Cementer Name Role Phone Cherie Arrington MD Primary Care Pro vider Allergies No known active allergies Medications * This document contains information received from the source organization and may not represent a complete record from that organization. fish oil-omega-3 fatty acids 1000 MG capsuleIndications: Hyperlipidemia, unspecified hyperlipidemia type Take 2 capsules (2 g) by mouth Once per day. 270 capsule 3 5 05/27/20 26 Active escitalopram (Lexapro) 10 MG tablet Take 1 tablet (10 mg) by mouth Once per day. 30 tablet 2 5 11/25/19 26 Active Active Problems Problem Noted Date Diagnosed Date Transaminitis 08/27/2025 Zazueta's palsy 05/23/2025 Obesity 05/23/2025 Persistent depressive [...] Encounters Date Type Department Care Team Description 08/27/2025 10:15 AM EDT Office Visit [address] [phone] Cherie Arrington MD Health care maintenance (Primary Dx); Transaminitis 08/27/2025 Orders Only [address] [address] Cherie Arrington MD 08/27/2025 Travel 08/26/[address] [address] Cherie Arrington MD chart prep 08/19/2025 Patient Outreach [address] [address] Cherie Arrington MD Pre-visit Planning (SDOH screening was completed on 03/27/2025) 07/31/[address] Nutrition referral 06/17/[address] [address] Cherie Arrington MD oct recall from Last 3 Months Immunizations Immunization Administration [...] Mass Index 31.32 08/27/2025 10:07 AM EDT Plan of Treatment Upcoming Encounters Date Type Department Care Team (Late st Contact Info) Description 11/10/2025 9:45 AM EST Office Visit [facility] [address] [place] [phone] Cherie Arrington MD [address] [place] [address] Health Maintenance Due Date Last Done Comments Family Planning (PISQ) 1995 HPV Vaccines (1 - Male 3-dose series) 1995 COVID-19 Vaccine (3 - season) 2025 03/16/2021, 02/16/2021 Influenza Vaccine (#1) 2025 08/12/2015, 2011 Alcohol/Substance Use Screening 10/08/2025 10/08/2024 Depression Screening 10/08/2025 10/08/2024, 10/08/20 24 SDOH Screening 03/27/2026 03/27/2025 Disability Screening 05/20/2026 05/20/2025 Tobacco Screening 08/27/2026 08/27/2025 Lipid Panel 05/26/2030 05/26/2025, 02/2024, 04/05/2022, Additional [...] Additional history exists HIV Screening Completed 05/26/2025, 02/2024, 10/02/2022, Additional history exists Hepatitis C [...] 05/26/2025 8:08 AM EDT Health care maintenance LIPID PANEL, STANDARD Routine 05/26/2025 8:08 AM EDT Hyperlipidemia, unspecified hyperlipidemia type from Last 3 Months or Most Recently Relevant to Health Maintenance Results * Hepatitis C Antibody with Reflex to HCV, RNA, Quantitative, Real-Time PCR (05/26/2025 8:08 AM EDT) Pathologist [facility] Hepatitis C Antibody Nonreactive Nonreactive [facility] Comment:Antibodies to HCV no t detected; does not exclude early acuteHCV infection. Blood Venous blood specimen / Unknown 05/26/2025 8:08 AM EDT 05/26/2025 11:10 AM EDT us Cherie Comer MD LAB BLOOD ORDERAB LES Final Result Performing Organization Address [facility] Co de Phone Number [facility] [address] [place] [phone] * HIV-1/2 Antigen and Antibodies, Fourth Generation, with Reflexes (05/26/2025 8:08 AM EDT) [facility] HIV AB/AG Nonreactive Nonreactive [facility] Comment:HIV-1 p24 Ag and/or HIV-1/HIV-2 Ab not detected.A test result that is nonreactive does not exclude thepossibility of exposure to or infection with HIV-1 and/orHIV-2. Nonreactive results in this assay for individualswith prior exposure to HIV-1 and/or HIV-2 may be due toantigen and antibody levels that are below the limit ofdetection of this assay.The [employer] HIV Ag/Ab Combo assay result andsupplemental assay results should be interpreted inconjunction with the patient's clinical presentation,history and other laboratory results. If the results areinconsistent with clinical evidence, additional testing issuggested to confirm the result. Blood Venous blood specimen / Unknown 05/26/2025 8:08 AM EDT 05/26/2025 11:10 AM EDT us Cherie Comer MD LAB BLOOD ORDERAB LES Final Result Performing Organization Address [facility] Co de Phone Number [facility] [address] [place] [phone] * (ABNORMAL) Lipid Panel, Standard (05/26/2025 8:08 AM EDT) Triglycerides 69 <150 mg/dL [facility] Comment:Desirable Triglyceri de: less than 150 mg/dLBorderline High Triglyceride 150-199 mg/dLHigh Triglyceride: 200-499 mg/dLVery High Triglyceride: greater than or equal to 5OO mg/dL Cholesterol 262(H) <200 mg/dL [facility] Comment:Desirable Cholestero l: less than 200 mg/dLBorderline High Cholesterol: 200-239 mg/dLHigh Cholesterol: greater than 239 mg/dL LDL Cholesterol Calculated 183(H) <100 mg/dL [facility] Comment:Desirable LDL: less than 100 mg/dLNear Optimal/Above Optimal LDL: 110- 129 mg/dLBorderline High LDL: 130-159 mg/dLHigh LDL: 160-189 mg/dLVery High LDL: greater than or equal to 190 mg/dL HDL Cholesterol 66 >40 mg/dL [facility] Comment:Desirable HDL: great er than 40 mg/dL Note: This HDL assay may give artificially low results in patients with liver disease. Blood Venous blood specimen / Unknown 05/26/2025 8:08 AM EDT 05/26/2025 11:13 AM EDT us Cherie Comer MD LAB BLOOD ORDERAB LES Final Result [facility] [address] [place] [phone] from Last 3 Months or Most Recently Relevant to Health Maintenance Insurance [facility] C3 Care Teams Bottom Cementer Relationship Specialty Start Date End Date Cehrie Arrington MD [address] [place] [phone] PCP - General Internal Medicine 04/01/24
--- OUTSIDE RECORDS SUMMARY | 2025-08-31 09:12 | XMS_ITS | Encounter Summary ---
Author Organization [employer] Address [address] [facility] [address] [place] [address] Care Team Providers Care Stereotype Caster Name Role Phone Cherie Arrington MD Primary Care Pro vider Reason for Visit * Reason Onset Date Comments chart prep 08/26/2025 Encounter Details Date Type Department Care Team ([facility] st Contact Info) Description 08/26/2025 Telephone [facility] [address] [place] [address] Cherie Arrington MD [address] [place] [address] chart prep Social History Tobacco Use Types Packs/Day Years Used Date Smoking Tobacco: Never Passive Smoke Exposure: Never Smokeless Tobacco: Never Alcohol Use Standard Drinks/Week Comments Yes 0 [...] AM EDT documented as of this encounter Miscellaneous Notes * Telephone Encounter - Mala Cobos [place] - 08/26/2025 9:52 AM EDT Chart Prep Labs: done Images: not applicable Referrals: complete Vaccines due: Covid, Flu, and HPV Screenings: not applicable Overdue care gaps: Not applicable documented in this encounter Plan of Treatment Upcoming Encounters Date Type Department Care Team (Late st Contact Info) Description 11/10/2025 9:45 AM EST Office Visit [facility] [address] [place] [phone] Cherie Arrington MD [address] [place] [phone] documented as of this encounter Visit Diagnoses Not on filedocumented in this encounter Additional Health Concerns Assessment Noted Time PHQ-9 Depression Total Score: 7 10/08/20 24 11:34 AM EST documented as of this encounter Care Teams Stereotype Caster Relationship Specialty Start Date End Date Cherie Arrington MD [address] [place] [phone] PCP - General Internal Medicine 04/01/24 documented as of this encounter
--- OUTSIDE RECORDS SUMMARY | 2025-08-31 09:13 | XMS_ITS | Encounter Summary ---
Author Organization [employer] Address [address] [facility] [address] [place] [address] Care Team Providers Care Cement Loader Name Role Phone Cherie Arrington MD Primary Care Pro vider Encounter Details Date Type Department Care Team (Late st Contact Info) Description 08/27/2025 Orders Only [facility] [address] [place] [address] Cherie Arrington MD [address] [place] [address] Social History Tobacco Use Types Packs/Day Years [...] AM EDT documented as of this encounter Progress Notes * Cherie Comer MD - 08/27/2025 10:08 PM EDT Decrease vision acuity -referred today for [facility] vision center documented in this encounter Plan of Treatment Upcoming Encounters Date Type Department Care Team (Late st Contact Info) Description 11/10/2025 9:45 AM EST Office Visit [facility] [address] [place] [phone] Cherie Arrington MD [address] [place] [phone] documented as of this encounter Visit Diagnoses Not on filedocumented in this encounter Additional Health Concerns Assessment Noted Time PHQ-9 Depression Total Score: 7 10/08/20 11:34 AM EST documented as of this encounter Care Teams Cement Loader Relationship Specialty Start Date End Date Cherie Arrington MD [address] [place] [phone] PCP - General Internal Medicine 04/01/24 documented as of this encounter
--- OUTSIDE RECORDS SUMMARY | 2025-08-31 09:13 | XMS_ITS | Encounter Summary ---
Author Organization [employer] Address [address] [place] [address] Care Team Providers Care Asset Protection Representative Name Role Phone Cherie Arrington MD Primary Care Pro vider Encounter Details Date Type Department Care Team (Latest Contact Info) Description 08/27/2025 Travel Social History Tobacco Use Types Packs/Day Years [...] AM EDT documented as of this encounter Plan of Treatment Upcoming Encounters Date Type Department Care Team (Late st Contact Info) Description 11/10/2025 9:45 AM EST Office Visit [facility] [address] [place] [phone] Cherie Arrington MD [address] [place] [phone] documented as of this encounter Visit Diagnoses Not on filedocumented in this encounter Additional Health Concerns Assessment Noted Time PHQ-9 Depression Total Score: 7 10/08/20 24 11:34 AM EST documented as of this encounter Care Teams Asset Protection Representative Relationship Specialty Start Date End Date Cherie Arrington MD [address] [place] [phone] PCP - General Internal Medicine 04/01/24 documented as of this encounter
[2025-08-31 11:34] LABS: MANUAL DIFF FLAG NO
[2025-08-31 11:58] LABS: Hematocrit 48.0 % (42.0-52.0); Hemoglobin 15.9 g/dl (14.0-18.0); Imm Gran Abs Auto 0.02 X10*3/uL (0.00-0.03); Imm Gran Pct Auto 0.3 % (0.0-0.4); Lymphocytes Absolute Auto 2.2 X10*3/uL (1.2-4.9); Mean Corpuscular HGB Conc 33.1 g/dl (31.0-36.0); Mean Corpuscular Hemoglobin 31.7 pg (27.0-33.0); Mean Corpuscular Volume 95.8 fL (80.0-98.0); NRBC Abs Auto 0.000 X10*3/uL (0.0-0.012); NRBC Pct Auto 0.0 /100WBC (0.0-0.2); Platelet Count 314 X10*3/uL (160-400); Red Blood Count 5.01 X10*6/uL (4.60-5.80); White Blood Count 6.2 X10*3/uL (4.8-10.8)
[2025-08-31 12:14] LABS: Total Hemoglobin (HGBA1C) 4073.7848 umol/L
[2025-08-31 12:16] LABS: Alanine Aminotransferase 36 U/L (0-40); Albumin Level 4.5 g/dL (3.5-5.0); Alkaline Phosphatase 97 U/L (39-117); Anion Gap 8 (12-20); Aspartate Amino Transferase 35 U/L (5-37); Blood Urea Nitrogen 14 mg/dL (9-16); Calcium 9.4 mg/dL (8.4-10.2); Carbon Dioxide 30 mmol/L (22-29); Chloride 105 mmol/L (96-108); Cholesterol 252 mg/dL (<200); Estimated Glomerular Filt Rate > 60; HDL Cholesterol 55 mg/dL (>40); Potassium 4.1 mmol/L (3.3-5.1); Sodium 139 mmol/L (135-145); Total Protein 7.4 g/dL (6.5-8.0); Triglycerides 98 mg/dL (<150)
[2025-08-31 12:24] LABS: Syphilis Screen Nonreactive (Nonreactive)
[2025-08-31 12:28] LABS: HBS Num1 0.65 mIU/mL (0-7.99); HBc Num1 0.08 S/CO (0.00-0.79); HBsAGNum1 0.38 S/CO (0.00-0.99); HIV Num 1 0.05 S/CO (0.00-0.99); Hepatitis B Surface Antigen Negative (Negative); ~HepC Num1 0.10 S/CO (0.00-0.79); ~Hepatitis B Surface Antibody NONREACTIVE (Nonreactive); ~Hepatitis C Antibody Nonreactive (Nonreactive)
[2025-08-31 13:34] LABS: CT PCR Urine NOT DETECTED (Not Detect.); NG PCR Urine NOT DETECTED (Not Detect.)
== END 2025-08-31 08:43 | disposition home or self-care (01) ==
LOC: HO.HHCL 08:42
PROVIDERS: PCP Student in an Organized Health Care Education/Training Program; Visit Provider Student in an Organized Health Care Education/Training Program
DX: Z00.00 Encounter for general adult medical examination without abnormal findings (principal); Z20.2 Contact with and (suspected) exposure to infections with a predominantly sexual mode of transmission; Z11.4 Encounter for screening for human immunodeficiency virus [HIV]; Z11.59 Encounter for screening for other viral diseases; E78.5 Hyperlipidemia, unspecified
CPT/HCPCS: 80053; 80061; 83036; 84443; 85025; 86704; 86706; 86780; 86803; 87340; 87389; 87491; 87591